=== PATIENT | female | born 1985 | race Caucasian/White ===

== ENCOUNTER 2020-10-08 08:36 | Inpatient (IN) ==
[2020-10-08] MEDS ORDERED: OXYTOCIN 30 UNITS/500 ML BAG IV PRN (09:41)
[2020-10-08] MEDS ORDERED: PENICILLIN G POTASSIUM 6 MU in DEXTROSE 5% 250 ML IV ONE (10:00)
[2020-10-08 10:04] LABS: Hematocrit (blood only) 38.4 % (37-47); Hemoglobin 13.5 g/dL (12.0-16.0); Mean Corpuscular Hemoglobin 32.6 pg (25-34); Mean Corpuscular Hgb Conc 35.2 g/dL (32-36); Mean Corpuscular Volume 92.8 fL (80-100); Mean Platelet Volume 9.7 fL (7.4-10.4); Platelet Count 240 K/uL (130-400); RDW Standard Deviation 47.3 fL (36.4-46.3); Red Blood Count 4.14 M/uL (4.2-5.4); White Blood Count 11.46 K/uL (4.8-10.8)
[2020-10-08] MEDS: LACTATED RINGER'S 1,000 ML IV PRN ×3 (10:14→19:02)
[2020-10-08] MEDS ORDERED: fentaNYL citrate 100 MCG/2 ML VIAL ONE (10:26)
[2020-10-08] MEDS ORDERED: BUPIVACAINE 0.25% 30 ML VIAL ONE (10:26)
[2020-10-08] MEDS ORDERED: SODIUM CHLORIDE 0.9% INJ 10 ML VIAL ONE (10:26)
[2020-10-08] MEDS ORDERED: ePHEDrine sulfate 50 MG/ML AMP ONE (10:26)
[2020-10-08] MEDS ORDERED: fentaNYL 2MCG/ML ROPIVACAINE 1.25MG/ML 100 ML BAG EPI ONE (10:27)
[2020-10-08] MEDS ORDERED: ePHEDrine sulfate 50 MG/ML AMP IV PRN (11:17)
[2020-10-08] MEDS ORDERED: diphenhydrAMINE 50 MG/ML VIAL IV PRN (11:17)
[2020-10-08] MEDS ORDERED: PROMETHAZINE HCL 6.25 MG in SODIUM CHLORIDE 0.9% 50 ML IV PRN (11:17)
[2020-10-08] MEDS ORDERED: fentaNYL 2MCG/ML ROPIVACAINE 1.25MG/ML 100 ML BAG EPI PRN (11:17)
[2020-10-08] MEDS ORDERED: NALOXONE HCL 0.4 MG/1 ML VIAL/CARP IV PRN (11:17)
[2020-10-08] MEDS ORDERED: ONDANSETRON INJ 2 MG/ML 2 ML VIAL IV PRN (11:17)
[2020-10-08] MEDS ORDERED: NALOXONE HCL 1 MG in SODIUM CHLORIDE 0.9% 1000ML 1,000 ML IV PRN (11:17)
--- NOTE | 2020-10-08 11:19 | Anesthesiology Consultation ---
Date of Service October 08, 2020 Assessment & Plan (1) Encounter for pre-operative examination: Chart Review Chart Review: Patient NOT seen in Pre Admission Testing and Acceptable Risk for Labor Epidural Consults Requested none ASA ASA2 Proposed Anesthesia Anesthesia Type: Labor Epidural Risk / Benefits Reviewed With: PT / POA / Parent / Guardian, Accepts Plan and Informed Consent Obtained History Height/Weight Height: 5 ft 3 in Weight: 86.636 kg Allergies Allergy/AdvReac Type Severity Reaction Status Date / Time latex Allergy Unknown hives Verified 09/30/20 13:57 contact metal agent Allergy Hives Verified 10/08/20 09:09 Medications Home Medications Medication Instructions Recorded Confirmed Last Taken fluoxetine 10 mg tablet 20 mg PO DAILY 02/19/20 10/08/20 10/07/20 21:30 prenat.vits,rafael,[id number] 1 tab PO DAILY 10/08/20 10/08/20 10/07/20 21:30 [ Vitamin] Active Medications Generic Name Dose Route Start Last Admin Trade Name Freq PRN Reason Stop Dose Admin Lactated Ringer's 1,000 mls @ 125 mls/hr 10/08/20 09:41 10/08/20 11:18 Lr IV 10/10/20 09:40 125 mls/hr .Q8H PRN Administration L&D Protocol Protocol NPO Date Last Intake of Fluids: 10/08/20 Time Last Intake of Fluids: 06:00 Date Last Intake of Solids: 10/08/20 Time Last Intake of Solids: 06:00 Past Medical History Medical History History of genital warts Laceration of right lower leg Varicella vaccination Exercise / Class Metabolic Activity II 4-5 Yardwork/Stairs/Walk up hill Past Family History Family History Mother Hypertension Father Hypertension Past Anesthesia History No Hx of Anesthesia Complications and No Family Hx of Anesthesia Complications History of PONV No Hx of PONV and No Hx of Motion Sickness Social History Smoking Status: Former smoker Hx Alcohol Use: No Hx Substance Use: No Physical Exam Vital Signs Last Vital Signs Temp 36.5 C 10/08/20 10:06 Pulse 103 H 10/08/20 11:15 Resp 20 10/08/20 11:11 BP 108/71 10/08/20 11:17 Pulse Ox 97 10/08/20 11:12 ENMT Mouth: no dentition abnormality Thyromental Distance: > or= 3.5 Finger Breadths Mallampati Class: II Neck normal visual inspection Respiratory normal respiratory effort Auscultation: lungs clear to auscultation bilaterally Cardiovascular Rate/Rhythm: regular rate and regular rhythm Psychiatric Orientation: alert Testing Laboratory Results 10/08/20 09:49
[2020-10-08] MEDS: PENICILLIN G POTASSIUM 3 MU in DEXTROSE 5% 100 ML IV PRN ×3 (14:16→20:38)
--- NOTE | 2020-10-08 14:28 | Labor Progress Brief Note ---
Date of Service October 08, 2020 Subjective Comfortable with epidural. FHT Cat 1 [place] Q 2 SVE 7-8/100/-1 Continue labor, anticipate . Assessment & Plan Admission and Anticipated Discharge Date Admission Date: October 08, 2020 Results & Data ([facility]) Vital Signs (Past 12 Hours) Vital Signs Temp Pulse Resp BP Pulse Ox 10/08/20 14:22 100 H 94 10/08/20 14:17 100 H 95 10/08/20 14:14 103 H 128/85 10/08/20 14:12 102 H 97 10/08/20 14:07 110 H 96 10/08/20 14:02 109 H 96 10/08/20 14:00 36.4 C L 110 H 104/74 10/08/20 13:59 20 10/08/20 13:57 95 H 95 10/08/20 13:52 96 H 93 10/08/20 13:47 99 H 94 10/08/20 13:44 116 H 135/84 10/08/20 13:42 102 H 93 10/08/20 13:37 101 H 93 10/08/20 13:32 105 H 94 10/08/20 13:29 20 10/08/20 13:28 105 H 125/80 10/08/20 13:27 95 H 93 10/08/20 13:22 112 H 95 10/08/20 13:17 95 H 93 10/08/20 13:13 98 H 122/77 10/08/20 13:12 107 H 96 10/08/20 13:07 109 H 95 10/08/20 13:02 106 H 96 10/08/20 13:00 20 10/08/20 12:59 114 H 121/64 10/08/20 12:57 116 H 96 10/08/20 12:52 124 H 96 10/08/20 12:47 115 H 97 10/08/20 12:43 103/64 10/08/20 12:42 101 H 94 10/08/20 12:37 98 H 95 10/08/20 12:32 92 H 96 10/08/20 12:28 101 H 18 98/64 L 10/08/20 12:27 101 H 97 10/08/20 12:22 105 H 97 10/08/20 12:17 113 H 97 10/08/20 12:12 104 H 97 10/08/20 12:09 102 H 97/54 L 10/08/20 12:07 98 H 98 10/08/20 12:05 93 H 108/65 10/08/20 12:02 99 H 98 10/08/20 12:00 36.7 C 100 H 20 108/68 10/08/20 11:57 104 H 98 10/08/20 11:54 109 H 116/76 10/08/20 11:52 101 H 98 10/08/20 11:48 107 H 87/58 L 10/08/20 11:47 111 H 99 10/08/20 11:43 84 101/62 10/08/20 11:42 91 H 97 10/08/20 11:38 93 H 104/63 10/08/20 11:37 97 H 98 10/08/20 11:33 91 H 113/70 10/08/20 11:32 93 H 97 10/08/20 11:30 20 10/08/20 11:28 111 H 97/61 L 10/08/20 11:27 111 H 97 10/08/20 11:25 96 H 91/58 L 10/08/20 11:24 100 H 86/53 L 10/08/20 11:22 108 H 109/74 97 10/08/20 11:19 100 H 20 106/74 10/08/20 11:17 100 H 108/71 98 10/08/20 11:15 103 H 111/72 10/08/20 11:13 100 H 111/67 10/08/20 11:12 98 H 97 10/08/20 11:11 104 H 20 121/76 10/08/20 11:10 95 H 119/77 10/08/20 11:07 98 H 127/84 97 10/08/20 11:04 106 H 88 L 10/08/20 11:02 99 H 98 10/08/20 11:01 95 H 131/82 10/08/20 10:57 93 H 96 10/08/20 10:52 100 H 95 10/08/20 10:47 90 96 10/08/20 10:42 97 H 96 10/08/20 10:37 93 H 96 10/08/20 10:32 105 H 96 10/08/20 10:27 101 H 95 10/08/20 10:23 94 H 129/85 10/08/20 10:22 101 H 96 10/08/20 10:07 99 H 130/83 10/08/20 10:06 36.5 C 20 10/08/20 09:14 105 H 121/81 10/08/20 08:51 36.8 C 92 H 20 133/86 Coding Level of Care Code None
[2020-10-08] MEDS ORDERED: miSOPROStoL 200 MCG TAB ONE ×2 (20:18→23:38)
--- NOTE | 2020-10-08 22:34 | History & Physical Report ---
Date of Service October 08, 2020 Assessment & Plan (1) Supervision of normal first : Admit to L&D for labor, as pt has made cervical change and SROM. Pcn G for GBS prophylaxis. Admission and Anticipated Discharge Date Admission Date: October 08, 2020 History of Present Illness Chief Complaint: labor Primary Care Provider: Franklin Hernandez MD Late entry: 35yo @ 40 1/7, presented with SROM at 0820 this morning clear fluid and contractions every few minutes. + movement, no vaginal bleeding. uncomplicated. Allergies Allergy/AdvReac Type Severity Reaction Status Date / Time latex Allergy Unknown hives Verified 09/30/20 13:57 contact metal agent Allergy Hives Verified 10/08/20 09:09 Home Medications Medication Instructions Recorded Confirmed Type fluoxetine 10 mg tablet 20 mg PO DAILY 02/19/20 10/08/20 History prenat.vits,rafael,glb-[id number]-[id number] 1 tab PO DAILY 10/08/20 10/08/20 History [ Vitamin] Patient History Medical History History of genital warts Laceration of right lower leg Varicella vaccination Family History Mother Hypertension Father Hypertension Social History Smoking Status: Former smoker Hx Alcohol Use: No Hx Substance Use: No Preferred Language: Swazi Communication Ability: Effective Fisher Hand Line Required: No Beliefs That Will Affect Care: None marital status: marital status details: Lg Mittal (30) [phone] Current Living Situation: Spouse Current Living Situation Comment: lives with fob, dog current occupational status: employed current occupation: retirement actuary & realtor Other Information That Helps Us Care for You: No Feels Safe at Home: Yes Safety Concerns: Feels Safe At This Time Assistive Devices: None Review of Systems All systems reviewed & are unremarkable except as noted in HPI & below Physical Exam Physical Exam: FHT Cat 1 [place] Q 2-3 Constitutional: WD/WN, vitals as above Respiratory: normal respiratory effort, lungs clear to auscultation no respiratory distress Cardiovascular: Rate/Rhythm: regular rate and regular rhythm Gastrointestinal (Abdomen): Inspection/Auscultation: abdomen normal to inspection Percussion/Palpation: abdomen soft; abdomen nontender Gravid. No s/s chorio or abruption. Skin: no rashes, warm and dry Psychiatric: A+Ox3, euthymic affect Results & Data ([facility]) Vital Signs (Past 12 Hours) Vital Signs Temp Pulse Resp BP Pulse Ox 10/08/20 22:29 118 H 135/63 10/08/20 22:28 118 H 97 10/08/20 22:23 106 H 97 10/08/20 22:22 122 H 82 L 10/08/20 22:18 109 H 95 10/08/20 22:17 123 H 86 L 10/08/20 22:13 118 H 97 10/08/20 22:08 112 H 134/68 97 10/08/20 22:05 109 H 87 L 10/08/20 22:03 120 H 98 10/08/20 21:58 113 H 97 10/08/20 21:44 109 H 119/70 10/08/20 21:42 127 H 99 10/08/20 21:39 125 H 84 L 10/08/20 21:37 107 H 98 10/08/20 21:32 100 H 98 10/08/20 21:29 107 H 129/85 10/08/20 21:28 115 H 88 L 10/08/20 21:27 106 H 98 10/08/20 21:22 142 H 96 10/08/20 21:17 103 H 97 10/08/20 21:16 107 H 88 L 10/08/20 21:15 105 H 124/71 10/08/20 21:14 20 10/08/20 21:12 117 H 96 10/08/20 21:10 113 H 82 L 10/08/20 21:09 36.8 C 20 10/08/20 21:07 110 H 96 10/08/20 21:02 113 H 94 10/08/20 20:58 107 H 118/63 10/08/20 20:57 107 H 18 96 10/08/20 20:52 115 H 95 10/08/20 20:50 37.5 C 20 10/08/20 20:47 105 H 94 10/08/20 20:44 113 H 18 127/66 88 L 10/08/20 20:42 115 H 95 10/08/20 20:37 107 H 95 10/08/20 20:32 106 H 95 10/08/20 20:27 115 H 95 10/08/20 20:22 119 H 95 10/08/20 20:17 117 H 94 10/08/20 20:13 102 H 123/69 10/08/20 20:12 104 H 95 10/08/20 20:07 116 H 95 10/08/20 20:02 111 H 94 10/08/20 19:59 117 H 118/69 10/08/20 19:57 111 H 94 10/08/20 19:52 113 H 95 10/08/20 19:50 108 H 119/64 10/08/20 19:47 107 H 95 10/08/20 19:44 105 H 115/73 10/08/20 19:42 98 H 96 10/08/20 19:37 101 H 95 10/08/20 19:32 104 H 95 10/08/20 19:28 104 H 112/73 10/08/20 19:27 94 H 95 10/08/20 19:22 100 H 96 10/08/20 19:17 103 H 94 10/08/20 19:16 37.0 C 18 10/08/20 19:14 110 H 117/69 10/08/20 19:12 107 H 95 10/08/20 19:07 109 H 96 10/08/20 19:02 112 H 96 10/08/20 18:59 100 H 20 131/81 10/08/20 18:57 112 H 96 10/08/20 18:52 111 H 95 10/08/20 18:47 112 H 95 10/08/20 18:44 100 H 128/82 10/08/20 18:42 96 H 96 10/08/20 18:37 97 H 93 10/08/20 18:32 95 H 94 10/08/20 18:29 20 10/08/20 18:28 110 H 107/76 10/08/20 18:27 105 H 95 10/08/20 18:22 105 H 94 10/08/20 18:17 96 H 95 10/08/20 18:13 108 H 117/78 10/08/20 18:12 106 H 95 10/08/20 18:07 95 H 96 10/08/20 18:02 98 H 95 12/03/20 17:59 37.1 C 20 10/08/20 17:58 96 H 115/79 10/08/20 17:57 93 H 95 10/08/20 17:52 103 H 95 10/08/20 17:47 98 H 95 10/08/20 17:43 96 H 111/73 10/08/20 17:42 103 H 94 10/08/20 17:37 100 H 93 10/08/20 17:32 101 H 94 10/08/20 17:29 18 10/08/20 17:28 99 H 114/75 10/08/20 17:27 98 H 94 10/08/20 17:22 97 H 96 10/08/20 17:20 103 H 122/79 10/08/20 17:17 95 H 95 10/08/20 17:12 100 H 94 10/08/20 17:07 100 H 95 10/08/20 17:02 99 H 94 10/08/20 16:59 20 10/08/20 16:58 105 H 119/73 10/08/20 16:57 103 H 94 10/08/20 16:52 121 H 95 10/08/20 16:47 101 H 95 10/08/20 16:45 107 H 124/71 10/08/20 16:42 110 H 95 10/08/20 16:37 105 H 94 10/08/20 16:32 96 H 94 10/08/20 16:30 105 H 103/63 10/08/20 16:29 18 10/08/20 16:27 103 H 96 10/08/20 16:22 100 H 95 10/08/20 16:17 102 H 95 10/08/20 16:13 103 H 115/74 10/08/20 16:12 99 H 95 10/08/20 16:07 96 H 96 10/08/20 16:02 93 H 95 10/08/20 16:00 98 H 123/81 10/08/20 15:59 37.1 C 20 10/08/20 15:57 100 H 95 10/08/20 15:52 108 H 94 10/08/20 15:47 105 H 95 10/08/20 15:43 109 H 120/79 10/08/20 15:42 106 H 95 10/08/20 15:37 104 H 95 10/08/20 15:32 103 H 95 10/08/20 15:29 114 H 18 119/75 10/08/20 15:27 103 H 95 10/08/20 15:22 110 H 94 10/08/20 15:17 101 H 95 10/08/20 15:13 110 H 118/71 10/08/20 15:12 104 H 94 10/08/20 15:07 100 H 94 10/08/20 15:02 96 H 95 10/08/20 14:59 110 H 20 112/77 10/08/20 14:57 106 H 94 10/08/20 14:52 105 H 95 10/08/20 14:47 104 H 94 10/08/20 14:44 100 H 119/77 10/08/20 14:42 107 H 94 10/08/20 14:37 95 H 93 10/08/20 14:32 104 H 94 10/08/20 14:29 18 10/08/20 14:28 100 H 120/78 10/08/20 14:27 96 H 94 10/08/20 14:22 100 H 94 10/08/20 14:17 100 H 95 10/08/20 14:14 103 H 128/85 10/08/20 14:12 102 H 97 10/08/20 14:07 110 H 96 10/08/20 14:02 109 H 96 10/08/20 14:00 36.4 C L 110 H 104/74 10/08/20 13:59 20 10/08/20 13:57 95 H 95 10/08/20 13:52 96 H 93 10/08/20 13:47 99 H 94 10/08/20 13:44 116 H 135/84 10/08/20 13:42 102 H 93 10/08/20 13:37 101 H 93 10/08/20 13:32 105 H 94 10/08/20 13:29 20 10/08/20 13:28 105 H 125/80 10/08/20 13:27 95 H 93 10/08/20 13:22 112 H 95 10/08/20 13:17 95 H 93 10/08/20 13:13 98 H 122/77 10/08/20 13:12 107 H 96 10/08/20 13:07 109 H 95 10/08/20 13:02 106 H 96 10/08/20 13:00 20 10/08/20 12:59 114 H 121/64 10/08/20 12:57 116 H 96 10/08/20 12:52 124 H 96 10/08/20 12:47 115 H 97 10/08/20 12:43 103/64 10/08/20 12:42 101 H 94 10/08/20 12:37 98 H 95 10/08/20 12:32 92 H 96 10/08/20 12:28 101 H 18 98/64 L 10/08/20 12:27 101 H 97 10/08/20 12:22 105 H 97 10/08/20 12:17 113 H 97 10/08/20 12:12 104 H 97 10/08/20 12:09 102 H 97/54 L 10/08/20 12:07 98 H 98 10/08/20 12:05 93 H 108/65 10/08/20 12:02 99 H 98 10/08/20 12:00 36.7 C 100 H 20 108/68 10/08/20 11:57 104 H 98 10/08/20 11:54 109 H 116/76 10/08/20 11:52 101 H 98 10/08/20 11:48 107 H 87/58 L 10/08/20 11:47 111 H 99 10/08/20 11:43 84 101/62 10/08/20 11:42 91 H 97 10/08/20 11:38 93 H 104/63 10/08/20 11:37 97 H 98 10/08/20 11:33 91 H 113/70 10/08/20 11:32 93 H 97 10/08/20 11:30 20 10/08/20 11:28 111 H 97/61 L 10/08/20 11:27 111 H 97 10/08/20 11:25 96 H 91/58 L 10/08/20 11:24 100 H 86/53 L 10/08/20 11:22 108 H 109/74 97 10/08/20 11:19 100 H 20 106/74 10/08/20 11:17 100 H 108/71 98 10/08/20 11:15 103 H 111/72 10/08/20 11:13 100 H 111/67 10/08/20 11:12 98 H 97 10/08/20 11:11 104 H 20 121/76 10/08/20 11:10 95 H 119/77 10/08/20 11:07 98 H 127/84 97 10/08/20 11:04 106 H 88 L 10/08/20 11:02 99 H 98 10/08/20 11:01 95 H 131/82 10/08/20 10:57 93 H 96 10/08/20 10:52 100 H 95 10/08/20 10:47 90 96 10/08/20 10:42 97 H 96 10/08/20 10:37 93 H 96 Coding Level of Care Code None Diagnoses Supervision of normal first Z34.00
[2020-10-08] MEDS ORDERED: TRANEXAMIC ACID / 0.7% NACL 1000MG/100ML BAG IV ONE (23:38)
[2020-10-08] MEDS ORDERED: CARBOPROST TROMETHAMINE 250 MCG/ML AMPUL ONE (23:39)
[2020-10-08] MEDS ORDERED: METHYLERGONOVINE MALEATE 0.2 MG/ML AMP ONE (23:39)
[2020-10-08 23:57] LABS: Hematocrit (blood only) 34.4 % (37-47)
[2020-10-09] MEDS ORDERED: SILVER NITR/POTASSIUM NITRATE APPLICATOR ONE (00:23)
[2020-10-09] MEDS ORDERED: OXYTOCIN 20 UNITS in LACTATED RINGER'S 1,000 ML IV SCH (00:30)
--- NOTE | 2020-10-09 01:04 | Delivery Summary ---
Vaginal Delivery Summary Date of Service October 09, 2020 Vaginal Delivery Summary Vaginal Delivery Summary: Pre-delivery diagnoses: 35yo @ 40 2/7, spontaneous labor Post-delivery diagnoses: same + hemorrhage Procedure: spontaneous vaginal delivery, placement of Bakri balloon, intra- procedure ultrasound, elective removal of skin tags, repair of 1st degree perineal laceration Surgeon: Yuliya Carter DO Complications: none Findings: Viable male . Apgars: 8/9. Weight pending, please see nursery records. Estimated blood loss: 1000ml Description of delivery: The patient progressed to complete with epidural anesthesia. She then began to push. She spontaneously vaginally delivered a viable from the cephalic presentation. The head delivered in ROP position. The anterior shoulder delivered, followed by the posterior shoulder, followed by the body. No nuchal cord. The baby was placed on mother's abdomen and a spontaneous cry was heard. The cord was doubly clamped and cut. Cord blood was obtained. The placenta was delivered spontaneously intact with a 3- vessel cord. The uterus and vagina were swept of clots and debris. Uterus was atonic, with large volume of clots out of uterus. IV pitocin was given. Hemabate, methergine, and cytotec were given to obtain better uterine tone. 1g TXA was ordered. H/H ordered. The uterus was swept with paradichlorobenzene machine operator's hand, and no placental fragments were palpated. There was a palpable "pocket" in anterior uterus - questionable anatomic anomaly? A Bakri balloon was placed into the uterus to improve tone and obtain hemostasis. This and the medications successfully achieved hemostasis. There was a small first degree perineal laceration, this was repaired with 3-0 vicryl in standard fashion. During this repair, the Bakri balloon began to slip out, and was found in the vagina. The Bakri was deflated and removed. The uterus and cervix were re-examined. The uterus was firm and had much improved tone. Therefore, the Bakri was not replaced. The cervix was evaluated, and using rings forceps, the entirety of the cervix was visualized and hemostatic. The vagina was evaluated in its entirety and was hemostatic, and no lacerations beyond the already noted 1st degree perineal lac. The vagina was observed for approximately 20 minutes, excellent hemostasis was observed. During this observation time, the patient had previously requested removal of 3 skin tags from vulva - one at left mons, one at right mons, and one at right labia majora near perineum. These were carefully snipped with scissors, and silver nitrate stick was used to obtain excellent hemostasis. Ultrasound was at bedside, and revealed no retained products of conception. No further bleeding observed. Fundus firm. Vitals stable. Chux, under-buttocks drape from delivery, sponges weighed, for a total estimated blood loss of 1000ml. The mother is recovering in stable and good condition in the room. Baby is in nursery. Sponge, needle and instrument counts were correct x 2. DO OTIS Varghese
[2020-10-09] MEDS ORDERED: miSOPROStoL 200 MCG TAB PR ONE (01:18)
[2020-10-09] MEDS ORDERED: METHYLERGONOVINE MALEATE 0.2 MG/ML AMP IM STA (01:18)
[2020-10-09] MEDS ORDERED: CARBOPROST TROMETHAMINE 250 MCG/ML AMPUL IM ONE (01:18)
[2020-10-09] MEDS ORDERED: TRANEXAMIC ACID / 0.7% NACL 1,000 MG/100 ML BAG IV STA (01:18)
[2020-10-09] MEDS ORDERED: bisacodyL 10 MG SUPP PR PRN (01:32)
[2020-10-09] MEDS ORDERED: OXYTOCIN 30 UNITS/500 ML BAG IV PRN (01:32)
[2020-10-09] MEDS ORDERED: DIPHTHERIA/TETANUS/PERTUSSIS 0.5 ML SYR/VIAL IM ONE (01:32)
[2020-10-09] MEDS ORDERED: ACETAMINOPHEN 325 MG TAB PO PRN (01:32)
[2020-10-09] MEDS ORDERED: SUPERCREAM 0.870% 15 GM JAR EXT PRN (01:32)
[2020-10-09] MEDS ORDERED: BENZOCAINE 20% AER SPR 82.5 GM CAN EXT PRN (01:32)
[2020-10-09] MEDS ORDERED: HYDROCORTISONE ACETATE 25 MG SUPP PR PRN (01:32)
[2020-10-09] MEDS ORDERED: oxyCODONE/ACETAMINOPHEN 5mg/325mg TAB PO PRN (01:32)
[2020-10-09] MEDS: IBUPROFEN 600 MG TAB PO PRN ×4 (04:46→22:39)
[2020-10-09 06:56] LABS: Hematocrit (blood only) 31.1 % (37-47); Hemoglobin 10.7 g/dL (12.0-16.0); Mean Corpuscular Hgb Conc 34.4 g/dL (32-36); Mean Corpuscular Volume 93.1 fL (80-100); Platelet Count 215 K/uL (130-400); RDW Coefficient of Variation 13.6 % (11.5-14.5); RDW Standard Deviation 46.9 fL (36.4-46.3); Red Blood Count 3.34 M/uL (4.2-5.4); White Blood Count 15.14 K/uL (4.8-10.8)
--- NOTE | 2020-10-09 08:17 | Ultrasound Report ---
EXAMINATION: PELVIC ULTRASOUND CLINICAL HISTORY: Bakri balloon placement COMPARISON STUDY: FINDINGS: The uterus was enlarged, consistent with a state. There are echogenic foci within the lowe r uterine segment, possibly related to air versus calcification. If air, this may be postprocedural. The endometrial stripe was not defined. The ovaries were not visualized. There was no evidence of pathologic free pelvic fluid. IMPRESSION: 1. Limited transabdominal study 2. Heterogeneously enlarged uterus consistent with a recent state 3. Multiple echogenic foci within the lower uterine segment, possibly related to postprocedural air v ersus calcification. ACT 112: Negative or not required by law. Electronically signed by: Antwan Judge M.D. 10/09/2020 8:15 AM
--- NOTE | 2020-10-09 08:27 | Obstetrical Progress Note ---
Date of Service October 09, 2020 Assessment & Plan (1) hemorrhage: Doing well. H/H has dropped after hemorrhage, however vitals have been stable. Will continue to monitor closely. Subjective Ambulation: ambulating normally Voiding: castellano catheter in place Diet Tolerance:: regular diet Lochia:: Moderate Feeding Type:: breast feeding PPD#0, s/p hemorrhage. Doing well. Tired. Has not yet been ambulating. Review of Systems All systems reviewed & are unremarkable except as noted in HPI & below Physical Exam Castellano catheter with adequate output. Normal lochia on exam. Fundus is firm. Constitutional WD/WN, vitals as above no acute distress Respiratory normal respiratory effort Cardiovascular Rate/Rhythm: regular rate and regular rhythm Gastrointestinal (Abdomen) Inspection/Auscultation: abdomen normal to inspection; abdomen not distended Percussion/Palpation: abdomen soft Genitourinary OB Exam Abdomen: + fundal height Fundus: + firm; not tender Results & Data ([facility]) Vital Signs (Past 12 Hours) Vital Signs Temp Pulse Pulse Resp BP BP Pulse Ox 10/09/20 05:40 36.9 C 100 H 16 124/79 97 10/09/20 04:33 96 H 123/77 97 10/09/20 04:28 101 H 97 10/09/20 04:23 97 H 97 10/09/20 04:18 98 H 98 10/09/20 04:13 99 H 97 10/09/20 04:08 96 H 97 10/09/20 04:03 97 H 97 10/09/20 03:58 103 H 97 10/09/20 03:53 98 H 96 10/09/20 03:48 93 H 95 10/09/20 03:43 89 96 10/09/20 03:38 96 H 97 10/09/20 03:33 103 H 97 10/09/20 03:28 89 96 10/09/20 03:26 36.5 C 18 95 10/09/20 03:23 94 H 95 10/09/20 03:21 96 H 126/88 10/09/20 03:18 94 H 94 10/09/20 03:13 102 H 96 10/09/20 03:08 93 H 94 10/09/20 03:06 93 H 126/84 10/09/20 03:03 86 96 10/09/20 02:58 96 H 96 12/04/20 02:53 89 95 10/09/20 02:51 92 H 129/84 10/09/20 02:48 91 H 95 10/09/20 02:43 94 H 95 10/09/20 02:38 92 H 95 10/09/20 02:36 93 H 133/85 10/09/20 02:33 91 H 95 10/09/20 02:28 89 96 10/09/20 02:23 37 C 91 H 18 96 10/09/20 02:21 90 138/90 10/09/20 02:18 102 H 97 10/09/20 02:13 91 H 96 10/09/20 02:08 95 H 96 10/09/20 02:06 92 H 140/90 10/09/20 02:03 98 H 96 10/09/20 01:58 97 H 95 10/09/20 01:53 95 H 95 10/09/20 01:51 94 H 143/94 H 10/09/20 01:48 95 H 95 10/09/20 01:43 36.5 C 97 H 18 136/67 94 10/09/20 01:38 90 94 10/09/20 01:33 101 H 94 10/09/20 01:28 36.6 C 100 H 18 95 10/09/20 01:23 96 H 95 10/09/20 01:21 108 H 132/92 10/09/20 01:18 102 H 94 10/09/20 01:13 98 H 95 10/09/20 01:08 100 H 94 10/09/20 01:06 106 H 125/89 10/09/20 01:03 96 H 126/89 93 10/09/20 01:00 100 H 125/83 10/09/20 00:58 105 H 93 10/09/20 00:54 96 H 123/77 10/09/20 00:53 95 H 93 10/09/20 00:50 93 H 114/71 10/09/20 00:48 98 H 123/71 93 10/09/20 00:45 103 H 125/77 10/09/20 00:43 97 H 93 10/09/20 00:42 91 H 122/71 10/09/20 00:40 91 H 119/69 10/09/20 00:38 90 98 10/09/20 00:33 96 H 119/79 98 10/09/20 00:30 96 H 116/81 10/09/20 00:28 89 98 10/09/20 00:27 91 H 120/73 10/09/20 00:24 94 H 118/73 10/09/20 00:23 95 H 98 10/09/20 00:21 91 H 125/76 10/09/20 00:18 95 H 119/77 97 10/09/20 00:15 96 H 120/75 10/09/20 00:13 99 H 98 10/09/20 00:12 90 121/77 10/09/20 00:08 96 H 121/77 97 10/09/20 00:06 96 H 126/77 10/09/20 00:03 92 H 122/76 97 10/08/20 23:59 99 H 121/79 10/08/20 23:58 92 H 97 10/08/20 23:57 87 120/75 10/08/20 23:54 93 H 126/77 10/08/20 23:53 93 H 97 10/08/20 23:51 100 H 131/74 10/08/20 23:48 93 H 20 124/70 97 10/08/20 23:43 92 H 98 10/08/20 23:42 97 H 134/63 10/08/20 23:39 93 H 132/63 10/08/20 23:38 97 H 97 10/08/20 23:35 98 H 127/60 10/08/20 23:34 93 H 132/56 L 10/08/20 23:33 97 H 142/63 H 98 10/08/20 23:30 108 H 142/81 H 10/08/20 23:28 101 H 127/58 L 98 10/08/20 23:27 99 H 130/61 10/08/20 23:25 113 H 124/62 10/08/20 23:23 117 H 124/63 94 10/08/20 23:20 112 H 122/58 L 10/08/20 23:18 104 H 95 10/08/20 23:17 105 H 128/62 10/08/20 23:13 100 H 132/60 94 10/08/20 23:09 114 H 131/84 10/08/20 23:08 114 H 97 10/08/20 23:03 141 H 90 10/08/20 22:58 137 H 96 10/08/20 22:53 127 H 96 10/08/20 22:48 104 H 97 10/08/20 22:43 117 H 121/60 97 10/08/20 22:41 116 H 86 L 10/08/20 22:38 112 H 97 10/08/20 22:35 115 H 87 L 10/08/20 22:33 106 H 95 10/08/20 22:29 118 H 135/63 10/08/20 22:28 118 H 97 10/08/20 22:23 106 H 97 10/08/20 22:22 122 H 82 L 10/08/20 22:18 109 H 95 10/08/20 22:17 123 H 86 L 10/08/20 22:13 118 H 97 10/08/20 22:08 112 H 134/68 97 10/08/20 22:05 109 H 87 L 10/08/20 22:03 120 H 98 10/08/20 21:58 113 H 97 10/08/20 21:44 109 H 119/70 10/08/20 21:42 127 H 99 10/08/20 21:39 125 H 84 L 10/08/20 21:37 107 H 98 10/08/20 21:32 100 H 98 10/08/20 21:29 107 H 129/85 10/08/20 21:28 115 H 88 L 10/08/20 21:27 106 H 98 10/08/20 21:22 142 H 96 10/08/20 21:17 103 H 97 10/08/20 21:16 107 H 88 L 10/08/20 21:15 105 H 124/71 10/08/20 21:14 20 10/08/20 21:12 117 H 96 10/08/20 21:10 113 H 82 L 10/08/20 21:09 36.8 C 20 10/08/20 21:07 110 H 96 10/08/20 21:02 113 H 94 10/08/20 20:58 107 H 118/63 10/08/20 20:57 107 H 18 96 10/08/20 20:52 115 H 95 10/08/20 20:50 37.5 C 20 10/08/20 20:47 105 H 94 10/08/20 20:44 113 H 18 127/66 88 L 10/08/20 20:42 115 H 95 10/08/20 20:37 107 H 95 10/08/20 20:32 106 H 95 10/08/20 20:27 115 H 95
[2020-10-09] MEDS ORDERED: NURSING DECISION MEDICATION ONE (08:35)
[2020-10-09] MEDS: PRENATAL VITAMIN 1 TAB PO SCH (08:36)
[2020-10-09] MEDS: DOCUSATE SODIUM 100 MG CAP PO SCH ×2 (08:36→20:08)
--- NOTE | 2020-10-09 08:37 | Anesthesia Procedure Note ---
Date of Service October 09, 2020 Anesthesia Post Epidural Note Vital Signs Vital Signs: Temp Pulse Resp BP Pulse Ox 36.9 C 100 H 16 124/79 97 10/09/20 05:40 10/09/20 05:40 10/09/20 05:40 10/09/20 05:40 10/09/20 05:40 Pain Intensity Bilateral Abdomen: Pain Intensity: 4 Vaginal: Pain Intensity: 3 Notes Mental Status: alert / awake / arousable and participated in evaluation Patient Amnestic to Procedure: No Nausea / Vomiting: adequately controlled Pain: adequately controlled Airway Patency, RR, SpO2: stable & adequate BP & HR: stable & adequate Hydration State: stable & adequate Neuraxial Anesthesia: was administered and sensory block is resolving Anesthetic Complications: no major complications apparent and Pt Satisfied with anesthetic care Epidural: Removed without complications and With tip intact
[2020-10-09] MEDS ORDERED: NON-FORMULARY MEDICATION (Prenat.Vits,Cal,Min-Iron-Folic Tablet) PO SCH (09:00)
[2020-10-09] MEDS ORDERED: FLUoxetine HCL 20 MG CAP PO SCH (09:00)
[2020-10-09 11:55] LABS: Hematocrit (blood only) 27.8 % (37-47); Hemoglobin 9.8 g/dL (12.0-16.0)
[2020-10-09] MEDS: FLUoxetine HCL 20 MG CAP PO SCH (20:07)
--- NOTE | 2020-10-10 04:00 | Obstetrical Progress Note ---
Date of Service October 10, 2020 Assessment & Plan (1) hemorrhage: Patient unsure of discharge today she is doing well otherwise she will see how she does during the day ambulating and we can determine later if she is interested in going home Subjective Ambulation: ambulating normally Voiding: no voiding problems Passing Gas:: Yes Diet Tolerance:: regular diet Lochia:: Small Feeding Type:: breast feeding Current Pain Level(1-10): 2 Physical Exam Constitutional WD/WN, vitals as above Gastrointestinal (Abdomen) normal bowel sounds, soft, nontender, no hepatosplenomegaly (ut firm) Results & Data ([facility]) Vital Signs (Past 12 Hours) Vital Signs Temp Pulse Resp BP Pulse Ox 10/10/20 00:40 97.5 F L 89 18 101/66 10/09/20 19:34 97.7 F 108 H 18 119/77 95 10/09/20 16:00 97.7 F 97 H 16 107/63 96
[2020-10-10 04:02] LABS: Hematocrit (blood only) 25.9 % (37-47); Hemoglobin 9.2 g/dL (12.0-16.0)
[2020-10-10] MEDS: PRENATAL VITAMIN 1 TAB PO SCH (07:50)
[2020-10-10] MEDS: IBUPROFEN 600 MG TAB PO PRN ×2 (07:50→20:20)
[2020-10-10] MEDS: DOCUSATE SODIUM 100 MG CAP PO SCH ×2 (07:50→20:20)
[2020-10-10] MEDS ORDERED: bisacodyL 5 MG TABEC PO SCH (20:00)
[2020-10-10] MEDS: FLUoxetine HCL 20 MG CAP PO SCH (20:19)
[2020-10-11] MEDS: IBUPROFEN 600 MG TAB PO PRN (04:49)
--- NOTE | 2020-10-11 07:54 | Obstetrical Progress Note ---
Date of Service October 11, 2020 Assessment & Plan (1) examination following vaginal delivery: doing well, stable for d/c home. f/u 6wks instructions reviewed. (2) hemorrhage: Day #:: 3 Subjective Ambulation: ambulating normally Voiding: no voiding problems Diet Tolerance:: regular diet Lochia:: Small Feeding Type:: breast feeding denies complaints. Physical Exam Constitutional WD/WN, vitals as above Respiratory normal respiratory effort, lungs clear to auscultation Cardiovascular Rate/Rhythm: regular rate and regular rhythm Gastrointestinal (Abdomen) Inspection/Auscultation: abdomen normal to inspection Percussion/Palpation: abdomen soft Fundus firm 2cm down Musculoskeletal nt calves no edema Neurologic grossly normal Psychiatric A+Ox3, euthymic affect Results & Data ([facility]) Vital Signs (Past 12 Hours) Vital Signs Temp Pulse Resp BP Pulse Ox 10/10/20 23:40 97.5 F L 104 H 16 128/83 96 10/10/20 20:10 97.5 F L 99 H 16 113/75 96
[2020-10-11] MEDS: DOCUSATE SODIUM 100 MG CAP PO SCH (09:24)
[2020-10-11] MEDS: PRENATAL VITAMIN 1 TAB PO SCH (09:24)
== END 2020-10-11 11:02 | disposition home or self-care (01) | DRG 768 ==
LOC: 4S1 08:36 → OPB 08:36 → 4S1 09:41 → 4S2 10-09 05:42